=== PATIENT | female | born 2000 | race Two or more races ===

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

== ENCOUNTER 2019-11-29 02:12 | Emergency (ER) | payer MEDICAID ==
--- NOTE | 2019-11-29 02:34 | EDM.PDOC ---
ED HPI GENERAL MEDICAL PROBLEM - General Chief Complaint: Headache Stated Complaint: HEADACHE Time Seen by Provider: 11/29/19 02:34 Source of Information: Reports: Patient History Limitations: Reports: No Limitations - History of Present Illness INITIAL COMMENTS - FREE TEXT/NARRATIVE: pt was coming back from [place] and at about 11 pm she developed a headache. She is not getting them frequently but she states when they come they are very severe. Onset: Today, Sudden, Other ( started at 11 pm. ) Duration: Hour(s): Location: Reports: Head Associated Symptoms: Reports: Headaches, Nausea/Vomiting (pt did vomit tonight. ), Other Headache Pain Score (Numeric/FACES): 9 - Related Data Allergies Allergy/AdvReac Type Severity Reaction Status Date / Time No Known Allergies Allergy Verified 11/29/19 02:29 Home Meds: Home Meds NK [No Known Home Meds] 07/29/18 [History] Past Medical History - Past Health History Medical/Surgical History: Denies Medical/Surgical History - Infectious Disease History Infectious Disease History: Reports: Chicken Pox Social & Family History - Tobacco Use Smoking Status *Q: Never Smoker Second Hand Smoke Exposure: No - Caffeine Use Caffeine Use: Reports: Energy Drinks - Recreational Drug Use Recreational Drug Use: No ED ROS GENERAL - Review of Systems Review Of Systems: See Below Constitutional: Reports: No Symptoms HEENT: Reports: No Symptoms Respiratory: Reports: No Symptoms Cardiovascular: Reports: No Symptoms Endocrine: Reports: No Symptoms GI/Abdominal: Reports: Nausea, Vomiting : Reports: No Symptoms Musculoskeletal: Reports: Other ( muscle tightness in the neck) - Physical Exam Exam: See Below Text/Narrative:: pt arrived with a history of migraine headaches that come about once every 3 monthes. She developed on about 11 pm tonight and she did vomit . Exam Limited By: No Limitations General Appearance: Alert, Moderate Distress, Other (pupils are equal and re active. ) Ears: Normal TMs Nose: Normal Inspection Throat/Mouth: Normal Inspection Head Exam: Atraumatic Neck: Other ( tender in the post cervical area. ) Respiratory/Chest: No Respiratory Distress Cardiovascular: Regular Rate, Rhythm GI/Abdominal: Soft, Non-Tender (Female) Exam: Deferred Rectal (Female) Exam: Deferred Neuro Exam (Abbreviated): Alert, Oriented, Normal Cognition Back Exam: Normal Inspection Extremities: Normal Inspection Psychiatric: Anxious Course - Vital Signs Last Recorded V/S: Last Vital Signs Temp 37.3 C 11/29/19 02:38 Pulse 88 11/29/19 02:38 Resp 16 11/29/19 02:38 BP 112/63 11/29/19 02:38 Pulse Ox 100 11/29/19 02:38 - Orders/Labs/Meds Meds: Medications Discontinued Medications Generic Name Dose Route Start Last Admin Trade Name Speedy PRN Reason Stop Dose Admin Ondansetron HCl 4 mg 11/29/19 02:41 11/29/19 02:50 Zofran Odt PO 11/29/19 02:42 4 mg ONETIME ONE Administration Sumatriptan Succinate 6 mg 11/29/19 02:40 11/29/19 02:46 Imitrex SUBCUT 11/29/19 02:41 6 mg ONETIME ONE Administration - Re-Assessments/Exams Free Text/Narrative Re-Assessment/Exam: 11/29/19 03:07 pen subling. She felt like she had a little tightness in her throat from the imitrex. This seemed to pass quickly. The headache has gone away and the nausea is better. She feels like she could rest at home. imitrex 6 mg subqand zoforan 4 mg were given. Departure - Departure Time of Disposition: 03:09 Disposition: Home, Self-Care 01 Condition: Fair Clinical Impression: Migraine headache - Discharge Information Referrals: PCP,None [Primary Care Provider] - Forms: ED Department Discharge Care Plan Goals: rest ,push fluids. Sepsis Event Note (ED) - Focused Exam Vital Signs: Vital Signs Temp Pulse Resp BP Pulse Ox 11/29/19 02:38 37.3 C 88 16 112/63 100
[2019-11-29] MEDS ORDERED: SUMAtriptan 6 MG/0.5 ML SDV SUBCUT ONE (02:40)
[2019-11-29] MEDS ORDERED: Ondansetron 4 MG Tab.DIS PO ONE (02:41)
== END 2019-11-29 03:18 | disposition home or self-care (01) ==
LOC: JP.ED 02:12
DX: G43.909 Migraine, unspecified, not intractable, without status migrainosus (principal)
CPT/HCPCS: 96372; 99283; A9270; J3030

== ENCOUNTER 2023-04-07 21:06 | Emergency (ER) | payer MEDICAID | END 2023-04-07 23:23 | disposition home or self-care (01) | LOC: JP.ED 21:06 | DX: G62.9 Polyneuropathy, unspecified (principal) | CPT/HCPCS: 99283 ==